=== PATIENT | male | born 1955 | race Two or more races ===

== ENCOUNTER 2024-03-29 13:10 | Emergency (ER) | payer OTHER ==
[~2024-03-29] VITALS: Ht 170.2 cm; Wt 86.5 kg
[2024-03-29 13:17] VITALS: O2SAT 99
[2024-03-29] MEDS ORDERED: LISINOPRIL (13:17)
[2024-03-29] MEDS ORDERED: INSULIN (13:17)
[2024-03-29 15:17] LABS: HEMATOCRIT. 28.8 % (42.0-52.0); HEMOGLOBIN. 9.4 g/dL (14.0-18.0); MEAN CORPUSCULAR HEMOGLOBIN 26.8 pg (28.0-32.0); MEAN CORPUSCULAR HGB CONC 32.5 g/dL (31.0-37.0); MEAN CORPUSCULAR VOLUME 82.6 fL (80.0-94.0); PLATELET 189 x1000/uL (130-400); RED BLOOD CELL COUNT 3.49 mill/uL (4.7-6.1); RED CELL DISTRIBUTION WIDTH 15.3 % (11.6-14.6); WHITE BLOOD COUNT 5.1 x1000/uL (4.5-11.0)
[2024-03-29 15:22] LABS: CHLORIDE 100 mEq/L (98-107); DIFFERENTIAL COMMENT 1; POTASSIUM 3.2 mEq/L (3.5-5.1); SODIUM 131 mEq/L (136-145)
[2024-03-29 15:23] LABS: CALCIUM 9.7 mg/dL (8.7-10.4); CARBON DIOXIDE 25 mEq/L (21-32)
[2024-03-29 15:28] LABS: GLUCOSE 122 mg/dL (70-105); PARTIAL THROMBOPLASTIN TIME 28.5 sec (23.4-31.0); PROTHROMBIN TIME 11.1 sec (9.6-11.0)
[2024-03-29 15:29] LABS: UREA NITROGEN BLOOD 15 mg/dL (9-23)
[2024-03-29 15:30] LABS: ALANINE AMINOTRANSFERASE 58 IU/L (10-49); ALBUMIN 3.3 g/dL (3.2-4.8); ASPARTATE AMINOTRANSFERASE 69 IU/L (<34); BILIRUBIN DIRECT 0.8 mg/dL (<=3.0); CREATINE KINASE 92 IU/L (46-171); ETHANOL BLOOD < 10 mg/dL (<10); TROPONIN I HIGH SENSITIVITY 4 ng/L (3.0-53)
[2024-03-29 15:31] LABS: BILIRUBIN TOTAL 1.5 mg/dL (0.1-1.0); PHOSPHORUS 3.1 mg/dL (2.5-4.9); PROTEIN TOTAL 6.7 g/dL (6.0-8.3)
[2024-03-29] MEDS: METOCLOPRAMIDE HCL 10MG/2ML VIAL IV ONE (15:36)
[2024-03-29 16:03] LABS: PLATELET ESTIMATE NORMAL
[2024-03-29 16:05] LABS: CLARITY URINE CLEAR (CLEAR); COLOR URINE YELLOW (YELLOW); GLUCOSE URINE NEGATIVE (NEGATIVE); KETONES URINE TRACE (NEGATIVE); LEUKOCYTE ESTERASE URINE NEGATIVE (NEGATIVE); NITRITE URINE NEGATIVE (NEGATIVE); OCCULT BLOOD URINE TRACE (NEGATIVE); PROTEIN URINE 1+ (NEGATIVE)
[2024-03-29 16:16] LABS: *AMPHETAMINES SCREEN URINE NEGATIVE (NEGATIVE); *BARBITURATES SCREEN URINE NEGATIVE (NEGATIVE); *BENZODIAZEPINES SCREEN URINE NEGATIVE (NEGATIVE); *COCAINE SCREEN URINE NEGATIVE (NEGATIVE); CANNABINOID URINE SCREEN NEGATIVE (NEGATIVE); ECSTASY MDMA SCREEN URINE NEGATIVE (NEGATIVE); METHADONE URINE SCREEN NEGATIVE (NEGATIVE); OPIATES URINE SCREEN NEGATIVE (NEGATIVE); PHENCYCLIDINE URINE SCREEN NEGATIVE (NEGATIVE)
[2024-03-29] MEDS: SODIUM CHLORIDE 0.9% 500 ML IV ONE (16:27)
[2024-03-29] MEDS: POTASSIUM CHLORIDE 20MEQ TABLET SR PO ONE (16:27)
[2024-03-29 16:37] LABS: BACTERIA URINE TRACE; RBC URINE 0-2 /hpf (0-2); SQUAMOUS EPITHELIAL CELL URINE FEW /lpf (RARE/1+); WBC URINE 0-2 /hpf (0-2)
[2024-03-29 17:18] LABS: LACTATE DEHYDROGENASE 357 IU/L (120-246)
[2024-03-29 17:25] LABS: MONOTEST NEGATIVE (NEGATIVE)
[2024-03-29 18:21] LABS: TROPONIN I HIGH SENSITIVITY < 4 ng/L (3.0-53)
[2024-03-29] MEDS: ONDANSETRON HCL 4MG/2ML INJ IV ONE (19:07)
[2024-03-29] MEDS: PANTOPRAZOLE SODIUM 40 MG/VIAL IV ONE (19:07)
[2024-03-29] MEDS: HYDROXYCHLOROQUINE SULFATE 200MG TABLET PO NR (19:49)
[2024-03-29] MEDS: CHLORPROMAZINE HCL 10 MG TABLET PO ONE (19:49)
[2024-03-29 23:01] VITALS: BP 142/70; PULSE 110; RESP 21; TEMP 98.7
[2024-03-29] MEDS: ONDANSETRON HCL 4MG/2ML INJ IV NR (23:17)
== END 2024-03-29 23:22 | disposition short-term general hospital (02) ==
LOC: ER 13:10
DX: R53.1 Weakness (principal); R06.6 Hiccough; R11.0 Nausea; E11.9 Type 2 diabetes mellitus without complications; I10 Essential (primary) hypertension; Z20.822 Contact with and (suspected) exposure to COVID-19
CPT/HCPCS: 80076; 80305; 80048; 81003; 80320; 82550; 83880; 83605; 83615; 83690; 83735; 84100; 85025; 85610; 85651; 85730; 86308; 87207; 84484; 87804 ×2; 36415; 71045; 76705; 93005; 96374; 96375; 96376; 99285; 87426; Q0161; J2765; J2405; J7040; J2470; G0480